=== PATIENT | female | born 1990 | race African-American/Black ===

== ENCOUNTER 2017-01-05 09:23 | Emergency (ER) | payer OTHER ==
[2017-01-05 09:30] VITALS: TEMP 97.8
--- NOTE | 2017-01-05 09:52 | ED ---
General Adult HPI - General Chief complaint: Upper Respiratory Infection Stated complaint: Congested/feeling ill/left had bump Time Seen by Provider: 01/05/17 09:44 Source: patient, RN notes reviewed Mode of arrival: ambulatory Limitations: no limitations - History of Present Illness Initial comments: Patient's a 6-year-old female who presents emergency room today with multiple complaints. She does admit that she's had cough congestion over the last 3 or 4 days. She has not been asthmatic has not used her inhaler or treatments. Patient admits that she has also noticed a bump to the back of the left hand. Denies any injury or trauma. States not tender. She denies any palpitations or symptoms. Patient denies any recent fever, chills, shortness of breath, chest pain, back pain, abdominal pain, nausea or vomiting, numbness or tingling , dysuria or hematuria, constipation or diarrhea, headaches or visual changes, or any other complaints. - Related Data Home Medications Medication Instructions Recorded Confirmed guaiFENesin [Mucinex] 2,400 mg PO Q12H PRN 01/05/17 01/05/17 Previous Rx's Medication Instructions Recorded guaiFENesin [Mucinex] 600 mg PO Q12HR #20 tablet.er 01/05/17 Allergies Allergy/AdvReac Type Severity Reaction Status Date / Time diphenhydramine HCl AdvReac Rash/Hives Verified 01/05/17 09:46 [From Nievesl] Review of Systems ROS Statement: Those systems with pertinent positive or pertinent negative responses have been documented in the HPI. ROS Other: All systems not noted in ROS Statement are negative. Past Medical History Past Medical History: Asthma History of Any Multi-Drug Resistant Organisms: None Reported Past Surgical History: Tonsillectomy Additional Past Surgical History / Comment(s): pe tubes Past Psychological History: No Psychological Hx Reported Smoking Status: Current some day smoker Past Alcohol Use History: None Reported Past Drug Use History: None Reported General Exam - General Exam Comments Initial Comments: General: The patient is awake and alert, in no distress, and does not appear acutely ill. Eye: Pupils are equal, round and reactive to light, extra-ocular movements are intact. No nystagmus. There is normal conjunctiva bilaterally. No signs of icterus. Ears, nose, mouth and throat: There are moist mucous membranes and no oral lesions. Neck: The neck is supple, there is no tenderness or JVD. Cardiovascular: There is a regular rate and rhythm. No murmur, rub or gallop is appreciated. Respiratory: Lungs are clear to auscultation, respirations are non-labored, breath sounds are equal. No wheezes, stridor, rales, or rhonchi. Gastrointestinal: Soft, non-distended, non-tender abdomen without masses or organomegaly noted. There is no rebound or guarding present. No CVA tenderness. Bowel sounds are unremarkable. Musculoskeletal: Normal ROM, no tenderness. Patient does have a bump measuring approximately 0.5 x 1 cm to the back of the left hand. No bruising. Nontender. Nonfluctuant. Non-mobile. Strength 5/5. Sensation intact. Pulses equal bilaterally 2+. Neurological: A&O x 3. CN II-XII intact, There are no obvious motor or sensory deficits. Coordination appears grossly intact. Speech is normal. Skin: Skin is warm and dry and no rashes or lesions are noted. Psychiatric: Cooperative, appropriate mood & affect, normal judgment. Limitations: no limitations Course Vital Signs 01/05/17 09:28 Temperature 97.8 F Pulse Rate 84 Respiratory 20 Rate Blood Pressure 111/60 O2 Sat by Pulse 100 Oximetry Medical Decision Making - Medical Decision Making Patient's chest x-ray is negative or any sign of pneumonia. Advised to use breathing treatments and also be given Mucinex. Advised follow-up the family doctor on improve or return if symptoms increase worsen. Patient x-ray of the left hand shows soft tissue swelling and no other abnormalities. Area is nontender. Patient advised follow-up with orthopedics for further evaluation Disposition Clinical Impression: Upper respiratory infection, Swelling of left hand Disposition: HOME SELF-CARE Condition: Good Instructions: Upper Respiratory Infection (ED) Additional Instructions: Please use medication as discussed. Please follow-up with family doctor in the next 2 days of symptoms have not improved. Please return to emergency room if the symptoms increase or worsen or for any other concerns. Prescriptions: guaiFENesin [Mucinex] 600 mg PO Q12HR #20 tablet.er Referrals: None,Stated [Primary Care Provider] - 1-2 days Time of Disposition: 10:21
--- NOTE | 2017-01-05 10:10 | XR ---
EXAMINATION TYPE: XR chest 2V DATE OF EXAM: 01/05/2017 COMPARISON: NONE HISTORY: Chest congestion for about a days. Cough per order. TECHNIQUE: Frontal and lateral views of the chest are obtained. FINDINGS: There is no focal air space opacity, pleural effusion, or pneumothorax seen. The cardiac silhouette size is within normal limits. The osseous structures are intact. IMPRESSION: No suspicious acute infiltrate.
--- NOTE | 2017-01-05 10:14 | XR ---
EXAMINATION TYPE: XR hand complete LT DATE OF EXAM: 01/05/2017 CLINICAL HISTORY: Pain per order. Lump on posterior hand per patient. TECHNIQUE: Frontal, lateral and oblique images of the left hand are obtained. COMPARISON: None. FINDINGS: There is no acute fracture/dislocation evident in the left hand. The joint spaces in the l eft hand appear within normal limits. On lateral view at base of metacarpals there is focal soft tiss ue prominence noted. No radiodense soft tissue foreign body is evident. No suspicious cortical destru ction is evident. IMPRESSION: There is no acute fracture or dislocation in the left hand. Focal soft tissue prominence along dorsal surface at base of metacarpals could reflect soft tissue lesion. Lesion can be further assessed with contrast-enhanced MRI if desired especially if becomes painful or enlarges.
[2017-01-05 10:31] VITALS: BP 120/66; PULSE 78; RESP 18
== END 2017-01-05 10:31 | disposition home or self-care (01) ==
LOC: EC 09:23
DX: J06.9 Acute upper respiratory infection, unspecified (principal); M79.89 Other specified soft tissue disorders; F17.200 Nicotine dependence, unspecified, uncomplicated; Z88.8 Allergy status to other drugs, medicaments and biological substances
CPT/HCPCS: 71020; 99283

== ENCOUNTER 2017-01-21 14:10 | Emergency (ER) | payer OTHER ==
[2017-01-21 14:14] VITALS: BP 112/68; PULSE 94; RESP 20; TEMP 97
--- NOTE | 2017-01-21 14:46 | ED ---
General Adult HPI - General Chief complaint: Extremity Injury, Upper Stated complaint: Arm Injury Time Seen by Provider: 01/21/17 14:23 Source: patient Mode of arrival: ambulatory Limitations: no limitations - History of Present Illness Initial comments: This is a 26-year-old female who presents to the emergency department today with chief complaint of left wrist pain. About one month ago patient noticed a tender mass on the dorsal aspect of left hand running along the extensor tendon of the third digit. One week ago while at work she fell down onto her left hand and reports since that time the pain has worsened. Reports pain with both flexion and extension of middle finger and her left wrist. Pain is described as a sharp and burning with radiation up forearm.Denies fever, chills, chest pain, shortness of breath, abdominal pain, nausea, vomiting, dysuria, hematuria , numbess, tingling, headache or vision changes. - Related Data Home Medications Medication Instructions Recorded Confirmed guaiFENesin [Mucinex] 2,400 mg PO Q12H PRN 01/05/17 01/05/17 Previous Rx's Medication Instructions Recorded guaiFENesin [Mucinex] 600 mg PO Q12HR #20 tablet.er 01/05/17 Ibuprofen [Motrin] 800 mg PO Q6HR #30 tab 01/21/17 Allergies Allergy/AdvReac Type Severity Reaction Status Date / Time diphenhydramine HCl AdvReac Rash/Hives Verified 01/21/17 14:14 [From Benadryl] Review of Systems ROS Statement: Those systems with pertinent positive or pertinent negative responses have been documented in the HPI. ROS Other: All systems not noted in ROS Statement are negative. Past Medical History Past Medical History: Asthma History of Any Multi-Drug Resistant Organisms: None Reported Past Surgical History: Tonsillectomy Additional Past Surgical History / Comment(s): pe tubes Past Psychological History: No Psychological Hx Reported Smoking Status: Current some day smoker Past Alcohol Use History: None Reported Past Drug Use History: None Reported General Exam - General Exam Comments Initial Comments: General: Awake and alert, well-developed; appears to be in mild distress due to pain. HEENT: Head atraumatic, normocephalic. Pupils are equal, round and reactive to light. Extraocular movements intact. Neck: Supple. Normal ROM. Cardiovascular: Regular rate and rhythm. No murmurs, rubs or gallops. Chest symmetrical. Respiratory: Lungs clear to auscultation bilaterally. No wheezes, rales or rhonchi. Normal respiratory efffort with no use of accessory muscles. Abdomen: Soft, non-tender, non-distended. No rigidity, rebound or guarding. Normal bowel sounds in all 4 quadrants. Extremities/Skin: [place], warm and dry. There is a tender mass along the extensor tendon of the third left digit on the dorsal aspect of left hand. It is slightly mobile. Pain is elicited with wrist flexion and extension of left wrist. Neurological: Alert and oriented x3. CN II-XII grossly intact. Speech is fluent and answers are appropriate. No focal neuro deficits. Psychiatric: Normal mood and affect. No overt signs of depression or anxiety noted. Limitations: no limitations Course Vital Signs 01/21/17 14:12 Temperature 97.0 F L Pulse Rate 94 Respiratory 20 Rate Blood Pressure 112/68 O2 Sat by Pulse 99 Oximetry Medical Decision Making - Medical Decision Making Left wrist x-ray was reviewed. There is no acute abnormality, no fractures or dislocations. This is likely a ganglion cyst. She'll be provided with prescription for ibuprofen 800 as well as an Ceferino bandage. She was advised to follow-up with orthopedics within 1-2 days. Disposition Clinical Impression: Ganglion cyst Disposition: HOME SELF-CARE Condition: Good Instructions: Ganglion Cysts (ED) Additional Instructions: Please take ibuprofen every 6 hours for pain and inflammation. Please follow up with Dr. Rodriguez, orthopedics within 2-3 days. Return to ED if symptoms should worsen. Prescriptions: Ibuprofen [Motrin] 800 mg PO Q6HR #30 tab Referrals: None,Stated [Primary Care Provider] - 1-2 days Ambrosio Rodriguez MD [Medical Doctor] - 1-2 days Time of Disposition: 15:05 Decision Time: 15:07
--- NOTE | 2017-01-21 14:55 | XR ---
EXAMINATION TYPE: XR wrist complete LT DATE OF EXAM: 01/21/2017 COMPARISON: NONE HISTORY: 26-year-old female with wrist pain TECHNIQUE: 4 views FINDINGS: The radiocarpal and distal radial ulnar joints as well as the midcarpal compartment appear intact. No acute fracture, subluxation, or dislocation. IMPRESSION: No acute osseous abnormality seen.
== END 2017-01-21 15:18 | disposition home or self-care (01) ==
LOC: EC 14:10
DX: M67.442 Ganglion, left hand (principal); F17.200 Nicotine dependence, unspecified, uncomplicated; Z88.8 Allergy status to other drugs, medicaments and biological substances
CPT/HCPCS: 99283